=== PATIENT | female | born 1950 | race Caucasian/White ===

== ENCOUNTER 2016-09-19 11:21 | Inpatient (IN) | payer MEDICARE, OTHER ==
[~2016-09-19] VITALS: Ht 162.6 cm; Wt 68.5 kg
[~2016-09-19 11:21] MED LIST: BACITRACIN1 GM TOP; CATAPRES 0.1MG0.1 MG PO; COLACE100 MG PO; ECOTRIN81 MG PO; FENTANYL TD; IBUPROFEN600 MG PO; KLONOPIN TAB 00.5 MG PO; LASIX20 MG PO; METOPROLOL SUCC25 MG PO; NEURONTIN 300300 MG PO; PANTOPRAZOLE SO40 MG PO; POTASSIUM CHLO20 ME2 PO; TOPAMAX50 MG PO; TYLENOL 325MG325 MG PO; ZETIA10 MG PO; [UNRECOGNIZED DRUG - OTHER] PO
[2016-09-19 12:58] LABS: BUN/CREATININE RATIO 5 (0-10)
[2016-09-19 16:58] LABS: WHITE BLOOD COUNT 6.8 K/UL (4.5-11.0)
[2016-09-19 16:59] LABS: HEMOGLOBIN 14.9 gm/dl (12.3-15.3); RED BLOOD COUNT 4.65 M/UL (4.00-5.10)
[2016-09-19] MEDS ORDERED: CATAPRES 0.1MG0.1 MG PO (20:54)
[2016-09-19] MEDS ORDERED: GABAPENTIN300 MG PO (20:55)
[2016-09-19] MEDS ORDERED: VITAMIN D250000 UNIT PO (20:57)
[2016-09-19] MEDS ORDERED: ZYPREXA5 MG PO (20:57)
[2016-09-19] MEDS ORDERED: PRILOSEC OTC20 MG PO (20:58)
[2016-09-20 03:40] LABS: HEMOGLOBIN 13.7 gm/dl (12.3-15.3); RED BLOOD COUNT 4.36 M/UL (4.00-5.10)
[2016-09-20 04:00] LABS: BUN/CREATININE RATIO 8 (0-10)
[2016-09-21 04:23] LABS: HEMOGLOBIN 12.5 gm/dl (12.3-15.3); RED BLOOD COUNT 4.03 M/UL (4.00-5.10)
[2016-09-21 04:26] LABS: WHITE BLOOD COUNT 11.3 K/UL (4.5-11.0)
[2016-09-21 04:38] LABS: BUN/CREATININE RATIO 8 (0-10)
[2016-09-23 11:34] LABS: HEMOGLOBIN 13.9 gm/dl (12.3-15.3); RED BLOOD COUNT 4.38 M/UL (4.00-5.10)
[2016-09-24 03:58] LABS: HEMOGLOBIN 13.7 gm/dl (12.3-15.3); RED BLOOD COUNT 4.42 M/UL (4.00-5.10); WHITE BLOOD COUNT 8.8 K/UL (4.5-11.0)
[2016-09-24 04:24] LABS: BUN/CREATININE RATIO 14 (0-10)
[2016-09-24] MEDS ORDERED: OMNICEF 300 MG300 MG PO (10:54)
[2016-09-24] MEDS ORDERED: MEDROL DOSEPAK 24 MG PO (10:55)
[2016-09-24] MEDS ORDERED: LYRICA50 MG PO (10:56)
[2016-09-24] MEDS ORDERED: CYMBALTA60 MG PO (10:57)
[2016-09-24] MEDS ORDERED: GENTLE LAXATIVE5 M1 PO (11:38)
[2016-09-24] MEDS ORDERED: CEFUROXIME500 MG PO (11:55)
[2017-01-26] MEDS ORDERED: SPIRIVA RESPIMAT4 GM INH (20:57)
[2017-01-26] MEDS ORDERED: FLEXERIL 10 MG10 MG PO (20:59)
[2017-01-26] MEDS ORDERED: TRAMADOL HCL50 MG PO (21:00)
[2017-01-26] MEDS ORDERED: ACCUPRIL 10 MG10 MG PO (21:01)
[2017-01-26] MEDS ORDERED: PROTONIX 40 MG40 M1 PO (21:02)
[2017-01-26] MEDS ORDERED: NORVASC 5 MG TAB5 MG PO (21:03)
[2017-01-30] MEDS ORDERED: PLETAL 100 MG100 MG PO (10:28)
[2017-01-30] MEDS ORDERED: FLAGYL500 MG PO (10:32)
[2017-01-30] MEDS ORDERED: LIPITOR TAB 1010 MG PO (10:33)
[2017-03-13] MEDS ORDERED: ZOFRAN4 MG PO (09:52)
[2017-03-13] MEDS ORDERED: HYSINGLA ER20 MG PO (09:52)
[2017-03-13] MEDS ORDERED: NITROSTAT0.4 MG PO (09:53)
[2017-03-13] MEDS ORDERED: PLAVIX 75 MG TA75 MG PO (12:47)
[2017-03-13] MEDS ORDERED: LIPITOR TAB 2020 MG PO (12:48)
== END 2016-09-24 12:25 | disposition home or self-care (01) | DRG 208 ==
LOC: ER1 11:21 → ZEROF 16:50 → CCU 20:42 → PROG CARE 09-20 21:35
PROVIDERS: Physician Assistant; ADMIT Internal Medicine
PROC: 5A1935Z Respiratory Ventilation, Less than 24 Consecutive Hours (ICD-10-PCS; principal; 2016-09-19)
PROC: 05HM33Z Insertion of Infusion Device into Right Internal Jugular Vein, Percutaneous Approach (ICD-10-PCS; 2016-09-19)
PROC: B543ZZA Ultrasonography of Right Jugular Veins, Guidance (ICD-10-PCS; 2016-09-19)
DX: J96.01 Acute respiratory failure with hypoxia (principal); J69.0 Pneumonitis due to inhalation of food and vomit; G92 Toxic encephalopathy; J44.0 Chronic obstructive pulmonary disease with (acute) lower respiratory infection; J44.1 Chronic obstructive pulmonary disease with (acute) exacerbation; I50.30 Unspecified diastolic (congestive) heart failure; I11.0 Hypertensive heart disease with heart failure; F31.9 Bipolar disorder, unspecified; T50.995A Adverse effect of other drugs, medicaments and biological substances, initial encounter; M51.36 Other intervertebral disc degeneration, lumbar region; F41.9 Anxiety disorder, unspecified; K21.9 Gastro-esophageal reflux disease without esophagitis; E78.5 Hyperlipidemia, unspecified; E03.9 Hypothyroidism, unspecified; K58.9 Irritable bowel syndrome, unspecified; K59.09 Other constipation; G62.9 Polyneuropathy, unspecified; G25.81 Restless legs syndrome; E55.9 Vitamin D deficiency, unspecified; D51.0 Vitamin B12 deficiency anemia due to intrinsic factor deficiency; Z88.5 Allergy status to narcotic agent; Z79.82 Long term (current) use of aspirin; Z79.899 Other long term (current) drug therapy; Z90.710 Acquired absence of both cervix and uterus; Z83.3 Family history of diabetes mellitus; Z82.49 Family history of ischemic heart disease and other diseases of the circulatory system; F17.210 Nicotine dependence, cigarettes, uncomplicated; M79.7 Fibromyalgia
CPT/HCPCS: 31500; 36415; 36600; 70450; 71010; 80048; 80053; 80307; 81001; 82140; 82550; 82553; 82803; 83605; 83874; 84132; 84484; 85025; 87040; 87070; 87077; 87086; 87186; 87205; 93005; 94002; 94003; 94640; 94664; 96361; 96365; 96375; 97110; 97116; 97530; 99291; C9113; J0330; J0456; J0696; J1650; J1956; J2310; J2550; J2920; J3370; J3480; J7030; J7050; J7070; J7509

== ENCOUNTER → 2016-11-04 | Outpatient (CLI) | payer MEDICARE, OTHER ==
[~2016-11-04] MED LIST changes: +ACCUPRIL 10 MG10 MG PO; +CEFUROXIME500 MG PO; +CYMBALTA60 MG PO; +FLAGYL500 MG PO; +FLEXERIL 10 MG10 MG PO; +GABAPENTIN300 MG PO; +GENTLE LAXATIVE5 M1 PO; +HYSINGLA ER20 MG PO; +LIPITOR TAB 1010 MG PO; +LIPITOR TAB 2020 MG PO; +LYRICA50 MG PO; +MEDROL DOSEPAK 24 MG PO; +NITROSTAT0.4 MG PO; +NORVASC 5 MG TAB5 MG PO; +OMNICEF 300 MG300 MG PO; +PLAVIX 75 MG TA75 MG PO; +PLETAL 100 MG100 MG PO; +PRILOSEC OTC20 MG PO; +PROTONIX 40 MG40 M1 PO; +SPIRIVA RESPIMAT4 GM INH; +TRAMADOL HCL50 MG PO; +VITAMIN D250000 UNIT PO; +ZOFRAN4 MG PO; +ZYPREXA5 MG PO
== END ==
LOC: KOH-I 16:20
DX: R52 Pain, unspecified (principal); R79.89 Other specified abnormal findings of blood chemistry
CPT/HCPCS: 73600

== ENCOUNTER 2016-11-25 00:07 | Emergency (ER) | payer MEDICARE, OTHER ==
[~2016-11-25 00:07] MED LIST changes: -ACCUPRIL 10 MG10 MG PO; -FLAGYL500 MG PO; -FLEXERIL 10 MG10 MG PO; -HYSINGLA ER20 MG PO; -LIPITOR TAB 1010 MG PO; -LIPITOR TAB 2020 MG PO; -NITROSTAT0.4 MG PO; -NORVASC 5 MG TAB5 MG PO; -PLAVIX 75 MG TA75 MG PO; -PLETAL 100 MG100 MG PO; -PROTONIX 40 MG40 M1 PO; -SPIRIVA RESPIMAT4 GM INH; -TRAMADOL HCL50 MG PO; -ZOFRAN4 MG PO
[2017-01-26] MEDS ORDERED: SPIRIVA RESPIMAT4 GM INH (20:57)
[2017-01-26] MEDS ORDERED: FLEXERIL 10 MG10 MG PO (20:59)
[2017-01-26] MEDS ORDERED: TRAMADOL HCL50 MG PO (21:00)
[2017-01-26] MEDS ORDERED: ACCUPRIL 10 MG10 MG PO (21:01)
[2017-01-26] MEDS ORDERED: PROTONIX 40 MG40 M1 PO (21:02)
[2017-01-26] MEDS ORDERED: NORVASC 5 MG TAB5 MG PO (21:03)
[2017-01-30] MEDS ORDERED: PLETAL 100 MG100 MG PO (10:28)
[2017-01-30] MEDS ORDERED: FLAGYL500 MG PO (10:32)
[2017-01-30] MEDS ORDERED: LIPITOR TAB 1010 MG PO (10:33)
[2017-03-13] MEDS ORDERED: ZOFRAN4 MG PO (09:52)
[2017-03-13] MEDS ORDERED: HYSINGLA ER20 MG PO (09:52)
[2017-03-13] MEDS ORDERED: NITROSTAT0.4 MG PO (09:53)
[2017-03-13] MEDS ORDERED: PLAVIX 75 MG TA75 MG PO (12:47)
[2017-03-13] MEDS ORDERED: LIPITOR TAB 2020 MG PO (12:48)
== END 2016-11-25 03:17 | disposition home or self-care (01) ==
LOC: ER1 00:07
DX: S93.401A Sprain of unspecified ligament of right ankle, initial encounter (principal); X58.XXXA Exposure to other specified factors, initial encounter; Y92.009 Unspecified place in unspecified non-institutional (private) residence as the place of occurrence of the external cause; M79.604 Pain in right leg; M79.89 Other specified soft tissue disorders
CPT/HCPCS: 93971; 96372; 99283; J1885

== ENCOUNTER 2020-08-25 17:35 | Emergency (ER) | payer MEDICARE, OTHER ==
[~2020-08-25 17:35] MED LIST changes: +ACCUPRIL 10 MG10 MG PO; +ACCUPRIL10 MG PO; +ASPIRIN325 MG PO; +BUSPAR 10MG10 MG PO; +DESYREL 50 MG T50 MG PO; +FLAGYL500 MG PO; +FLEXERIL 10 MG10 MG PO; +HYSINGLA ER20 MG PO; +KEFLEX CAP 500500 MG PO; +LIPITOR TAB 1010 MG PO; +LIPITOR TAB 2020 MG PO; +MACROBID 100 M100 MG PO; +NITROSTAT0.4 MG PO; +NORVASC 5 MG TAB5 MG PO; +OXYCODONE HCL10 MG PO; +PERCOCET 5/325 T1 EA PO; +PHENERGAN 25 MG25 M1 PO; +PLAVIX 75 MG TA75 MG PO; +PLETAL 100 MG100 MG PO; +PROTONIX 40 MG40 M1 PO; +SEROQUEL25 MG PO; +SPIRIVA RESPIMAT4 GM INH; +TOPROL XL 50 MG50 MG PO; +TRAMADOL HCL50 MG PO; +VANCOMYCIN HCL250 MG PO; +Voltaren Gel 1 % TOP; +ZANAFLEX4 MG PO; +ZOFRAN4 MG PO; +ZOLOFT50 MG PO; +ZYRTEC10 MG PO; +vitamin d PO
[2020-08-25 20:15] LABS: HEMOGLOBIN 10.9 gm/dl (12.3-15.3); RED BLOOD COUNT 4.6 M/UL (4.00-5.10); WHITE BLOOD COUNT 17.3 K/UL (4.5-11.0)
[2020-08-25 21:15] LABS: BUN/CREATININE RATIO 17 (0-10)
[2020-08-26] MEDS ORDERED: TRAZODONE HCL50 MG PO ×2 (01:29→01:31)
== END 2020-08-26 01:45 | disposition home or self-care (01) ==
LOC: ER1 17:35
PROVIDERS: Physician Assistant
DX: S93.401A Sprain of unspecified ligament of right ankle, initial encounter (principal); S40.011A Contusion of right shoulder, initial encounter; G47.00 Insomnia, unspecified; Z20.822 Contact with and (suspected) exposure to COVID-19; D72.829 Elevated white blood cell count, unspecified; R41.82 Altered mental status, unspecified; E78.5 Hyperlipidemia, unspecified; I25.2 Old myocardial infarction; J44.9 Chronic obstructive pulmonary disease, unspecified; F17.210 Nicotine dependence, cigarettes, uncomplicated; Z90.49 Acquired absence of other specified parts of digestive tract; Z90.89 Acquired absence of other organs; Z90.710 Acquired absence of both cervix and uterus; Z88.8 Allergy status to other drugs, medicaments and biological substances; W19.XXXA Unspecified fall, initial encounter; Y92.009 Unspecified place in unspecified non-institutional (private) residence as the place of occurrence of the external cause
CPT/HCPCS: 0240U; 36600; 70450; 71045; 73030; 73502; 73610; 73630; 80053; 80307; 81001; 82140; 82550; 82553; 82803; 83690; 83874; 84484; 85025; 93005; 99285; G0480

== ENCOUNTER → 2020-10-04 | Outpatient (CLI) | payer MEDICARE ==
[~2020-10-04] MED LIST changes: +TRAZODONE HCL50 MG PO
== END ==
LOC: KOH-I 16:20
DX: M25.571 Pain in right ankle and joints of right foot (principal)
CPT/HCPCS: 73600

== ENCOUNTER → 2020-11-30 | Outpatient (CLI) | payer MEDICARE | LOC: KOH-I 15:33 | DX: J44.9 Chronic obstructive pulmonary disease, unspecified (principal); M54.5 Low back pain; R09.89 Other specified symptoms and signs involving the circulatory and respiratory systems; M43.8X4 Other specified deforming dorsopathies, thoracic region | CPT/HCPCS: 71046; 72070 ==

== ENCOUNTER → 2021-04-30 | Outpatient (CLI) | payer MEDICARE ==
[~2021-04-30] MED LIST changes: +CARAFATE 1 GM TA1 GM PO
== END ==
LOC: OPSV 11:39
PROVIDERS: Internal Medicine
DX: N28.9 Disorder of kidney and ureter, unspecified (principal)
CPT/HCPCS: 36415; 80048; 96360; 96361

== ENCOUNTER 2021-05-04 00:16 | Emergency (ER) | payer MEDICARE ==
[~2021-05-04 00:16] MED LIST changes: -CARAFATE 1 GM TA1 GM PO
[2021-05-04 01:51] LABS: HEMOGLOBIN 14.1 gm/dl (12.3-15.3); RED BLOOD COUNT 4.54 M/UL (4.00-5.10); WHITE BLOOD COUNT 8.9 K/UL (4.5-11.0)
[2021-05-04 02:13] LABS: BUN/CREATININE RATIO 13 (0-10)
[2021-05-04] MEDS ORDERED: CARAFATE 1 GM TA1 GM PO (05:11)
== END 2021-05-04 06:10 | disposition home or self-care (01) ==
LOC: ER1 00:16
PROVIDERS: Physician Assistant
DX: R07.89 Other chest pain (principal); I10 Essential (primary) hypertension; K21.9 Gastro-esophageal reflux disease without esophagitis; E87.6 Hypokalemia; J44.9 Chronic obstructive pulmonary disease, unspecified; Z90.710 Acquired absence of both cervix and uterus; F17.200 Nicotine dependence, unspecified, uncomplicated
CPT/HCPCS: 71045; 80053; 82550; 82553; 83690; 83874; 84484; 85025; 93005; 96374; 96375; 99285; J2270; J2405

== ENCOUNTER → 2021-05-08 | Outpatient (CLI) | payer MEDICARE ==
[~2021-05-08] MED LIST changes: +CARAFATE 1 GM TA1 GM PO
[2021-05-08 10:30] LABS: BUN/CREATININE RATIO 13 (0-10)
== END ==
LOC: LAB 09:39
PROVIDERS: Internal Medicine
DX: I10 Essential (primary) hypertension (principal)
CPT/HCPCS: 36415; 80048

== ENCOUNTER → 2021-05-22 | Outpatient (CLI) | payer MEDICARE | LOC: KOH-I 14:09 | DX: F17.210 Nicotine dependence, cigarettes, uncomplicated (principal); R91.8 Other nonspecific abnormal finding of lung field | CPT/HCPCS: 71271 ==

== ENCOUNTER → 2021-10-09 | Outpatient (CLI) | payer MEDICARE | LOC: MAMO 10-02 10:00 | DX: Z12.31 Encounter for screening mammogram for malignant neoplasm of breast (principal) | CPT/HCPCS: 77063; 77067 ==

== ENCOUNTER → 2021-10-30 | Outpatient (CLI) | payer MEDICARE | LOC: MAMO 12:15 | DX: R92.8 Other abnormal and inconclusive findings on diagnostic imaging of breast (principal) | CPT/HCPCS: 76642-LT; 77065; G0279 ==

== ENCOUNTER → 2021-11-07 | Day surgery (SDC) | payer MEDICARE ==
[~2021-11-07] MED LIST changes: +CLONAZEPAM1 MG PO; +DILTIAZEM 12HR60 MG PO; +NIFEREX 150 MG150 MG PO; +NITROSTAT 0.40.4 MG SL; +ST. JOSEPH ASPI81 MG PO; +VRAYLAR3 MG PO
== END | disposition home or self-care (01) ==
LOC: OR 06:05
DX: D12.2 Benign neoplasm of ascending colon (principal); D12.4 Benign neoplasm of descending colon; D12.3 Benign neoplasm of transverse colon; I10 Essential (primary) hypertension; F31.9 Bipolar disorder, unspecified; I25.10 Atherosclerotic heart disease of native coronary artery without angina pectoris; J44.9 Chronic obstructive pulmonary disease, unspecified; K21.9 Gastro-esophageal reflux disease without esophagitis; E78.5 Hyperlipidemia, unspecified; E03.9 Hypothyroidism, unspecified; M81.0 Age-related osteoporosis without current pathological fracture; Z88.5 Allergy status to narcotic agent; Z88.8 Allergy status to other drugs, medicaments and biological substances; Z79.82 Long term (current) use of aspirin; Z79.02 Long term (current) use of antithrombotics/antiplatelets; Z79.899 Other long term (current) drug therapy
CPT/HCPCS: J2704; J7120

== ENCOUNTER 2021-11-27 19:28 | Emergency (ER) | payer MEDICARE | END 2021-11-27 21:30 | disposition left against medical advice (07) | LOC: ER1 19:28 | DX: Z53.21 Procedure and treatment not carried out due to patient leaving prior to being seen by health care provider (principal) ==

== ENCOUNTER → 2021-11-28 | Outpatient (CLI) | payer MEDICARE | LOC: LAB 13:02 | DX: J44.1 Chronic obstructive pulmonary disease with (acute) exacerbation (principal); Z20.822 Contact with and (suspected) exposure to COVID-19 | CPT/HCPCS: U0003 ==

== ENCOUNTER → 2021-12-19 | Outpatient (CLI) | payer MEDICARE | LOC: RAD 17:41 | DX: M54.50 Low back pain, unspecified (principal); E55.9 Vitamin D deficiency, unspecified; M47.816 Spondylosis without myelopathy or radiculopathy, lumbar region | CPT/HCPCS: 72110; 82652 ==

== ENCOUNTER → 2022-01-11 | Outpatient (CLI) | payer MEDICARE | LOC: KOH-I 10:33 | DX: M47.26 Other spondylosis with radiculopathy, lumbar region (principal); M47.27 Other spondylosis with radiculopathy, lumbosacral region; M48.062 Spinal stenosis, lumbar region with neurogenic claudication; M48.07 Spinal stenosis, lumbosacral region; R29.898 Other symptoms and signs involving the musculoskeletal system | CPT/HCPCS: 72148 ==

== ENCOUNTER → 2022-03-01 | Outpatient (CLI) | payer MEDICARE | LOC: MRI 02-21 16:30 | DX: R29.2 Abnormal reflex (principal); R90.89 Other abnormal findings on diagnostic imaging of central nervous system; M47.812 Spondylosis without myelopathy or radiculopathy, cervical region; M47.813 Spondylosis without myelopathy or radiculopathy, cervicothoracic region | CPT/HCPCS: 72156; A9577 ==